=== PATIENT | female | born 1935 | race Caucasian/White ===

== ENCOUNTER 2016-06-05 13:50 | Emergency (ER) | payer MEDICARE, OTHER ==
[~2016-06-05] VITALS: Ht 160 cm; Wt 61.2 kg
[2016-10-31] MEDS ORDERED: LIPITOR10 MG PO (17:21)
[2016-10-31] MEDS ORDERED: FLONASE16 GM NASBOTH (17:22)
[2016-10-31] MEDS ORDERED: NORVASC5 MG PO (17:22)
[2016-10-31] MEDS ORDERED: COZAAR50 MG PO (17:22)
[2016-10-31] MEDS ORDERED: LOPRESSOR25 MG PO (17:23)
== END 2016-06-05 18:10 | disposition short-term general hospital (02) ==
LOC: ER 13:50
DX: S22.31XA Fracture of one rib, right side, initial encounter for closed fracture (principal); K76.89 Other specified diseases of liver; D72.829 Elevated white blood cell count, unspecified; I67.9 Cerebrovascular disease, unspecified; I48.91 Unspecified atrial fibrillation; E78.5 Hyperlipidemia, unspecified; I10 Essential (primary) hypertension; Z95.5 Presence of coronary angioplasty implant and graft; M47.892 Other spondylosis, cervical region; M85.80 Other specified disorders of bone density and structure, unspecified site; Z88.5 Allergy status to narcotic agent; Z88.1 Allergy status to other antibiotic agents; Z88.8 Allergy status to other drugs, medicaments and biological substances; Z79.82 Long term (current) use of aspirin; Z79.899 Other long term (current) drug therapy; W07.XXXA Fall from chair, initial encounter
CPT/HCPCS: J2270; J2405